=== PATIENT | male | born 1945 | race Caucasian/White ===

== ENCOUNTER → 2016-05-02 | Outpatient (CLI) | payer BC | LOC: FIMAGING 07:49 | PROVIDERS: ATTEND Specialist | DX: Z85.46 Personal history of malignant neoplasm of prostate (principal); R97.20 Elevated prostate specific antigen [PSA]; M43.22 Fusion of spine, cervical region; M50.320 Other cervical disc degeneration, mid-cervical region, unspecified level | CPT/HCPCS: 71020; 72040; 72100; 78306; A9503 ==